=== PATIENT | male | born 1940 | race Caucasian/White ===

== ENCOUNTER 2017-01-08 11:23 | Day surgery (SDC) | payer OTHER, MEDICARE ==
[2016-12-31 13:39] VITALS: BMI 41.0
--- NOTE | 2016-12-31 14:20 | PAT Medication Instructions ---
Service Date Dec 31, 2016. Current Home Medication List Aspirin (Aspirin), 325 MG PO QPM Atorvastatin (Lipitor), 20 MG PO QPM Calcium Carbonate (Tums), 1 DOSE PO DAILY Carvedilol (Coreg), 25 MG PO BID Cinnamon (Cinnamon), 1 TAB PO TID Fenofibrate (Tricor), 160 MG PO QPM Ferrous Sulfate (Iron), 325 MG PO TID Hydralazine Hcl (Apresoline), 100 MG PO TID Levothyroxine Sodium (Levothyroxine Sodium), 1 TAB PO QAM Multivitamin (Multivitamin), 1 TAB PO QPM Niacin Ext Rel (Niaspan Ext Rel), 1,000 MG PO QAM Nifedipine (Adalat Cc Ext Rel), 90 MG PO QPM Spironolactone (Aldactone), 25 MG PO QPM Terazosin Hcl (Hytrin), 10 MG PO BID Torsemide (Demadex), 100 MG PO QAM Medication Instructions For Your Scheduled Surgery - Hold the following medications as of 12/31/16: Cinnamon (Cinnamon), 1 TAB PO TID - Hold the following medications the morning of surgery: Torsemide (Demadex), 100 MG PO QAM Calcium Carbonate (Tums), 1 DOSE PO DAILY Ferrous Sulfate (Iron), 325 MG PO TID Niacin Ext Rel (Niaspan Ext Rel), 1,000 MG PO QAM - Take the following medications the morning of surgery with a sip of water OTHERWISE NOTHING TO EAT OR DRINK AFTER MIDNIGHT: Carvedilol (Coreg), 25 MG PO BID Levothyroxine Sodium (Levothyroxine Sodium), 1 TAB PO QAM Hydralazine Hcl (Apresoline), 100 MG PO TID Terazosin Hcl (Hytrin), 10 MG PO BID - Take the following medications as scheduled the night before surgery: Nifedipine (Adalat Cc Ext Rel), 90 MG PO QPM Spironolactone (Aldactone), 25 MG PO QPM Multivitamin (Multivitamin), 1 TAB PO QPM Atorvastatin (Lipitor), 20 MG PO QPM Carvedilol (Coreg), 25 MG PO BID Aspirin (Aspirin), 325 MG PO QPM (okay to continue per surgeon) Hydralazine Hcl (Apresoline), 100 MG PO TID Ferrous Sulfate (Iron), 325 MG PO TID Terazosin Hcl (Hytrin), 10 MG PO BID - Do not take the following medications the night before surgery: Fenofibrate (Tricor), 160 MG PO QPM If you have any questions please call us at [phone] or [phone] or [phone]
[2016-12-31 15:16] LABS: BASO % 0.5 %; BASO ABS # 0.04 K/uL (0-0.2); COMPLETE YES; EOS % 5.6 %; IG% 0.4 %; LYMPH % 15.6 %; LYMPH ABS # 1.33 K/uL (1.2-3.4); MEAN CELL VOLUME 98.7 fL (80-100); MEAN CORPUSCULAR HEMOGLOBIN 31.8 pg (25-34); MEAN CORPUSCULAR HGB CONC 32.3 g/dl (32-36); MEAN PLATELET VOLUME 9.5 fL (7.4-10.4); MONO % 10.8 %; NEUT % 67.1 %; PLATELET COUNT 213 K/uL (130-400); RED BLOOD COUNT 3.14 M/uL (4.7-6.1); WHITE BLOOD COUNT 8.54 K/uL (4.8-10.8)
[2016-12-31 15:35] LABS: INR 1.1 (0.9-1.1); PROTHROMBIN TIME (PATIENT) 12.1 SECONDS (9.0-12.0)
[2016-12-31 16:13] LABS: BUN/CREATININE RATIO 13.1 (10-20); CALCIUM 8.8 mg/dl (8.5-10.1); CREATININE 3.4 mg/dl (0.60-1.40)
[~2017-01-08] VITALS: Ht 180.3 cm; Wt 127.3 kg
--- NOTE | 2017-01-08 06:05 | History and Physical ---
History & Physical Date of Service Jan 08, 2017. History & Physical CC: End stage renal disease HPI: Mr. Sousa states that he has had worsening kidney disease for a while now and that he was advised by his process improvement analyst to undergo creation of arteriovenous fistula, as he is likely to need dialysis at some point; however, he was not given any time frame for this. There is no definite start date planned. The patient states overall he has been feeling generally pretty well. He has been getting around okay and denies any complaints at this time. He denies headaches, fevers, chills, dizziness, chest pain, shortness of breath, abdominal pain, nausea, vomiting, diarrhea, constipation, dysuria, hematuria, rest pain, claudication, nonhealing wounds, or ulcers other complaints. He did undergo vein mapping prior to today's appointment, which demonstrates a usable cephalic vein in his left upper arm, as well as a usable cephalic vein in his right forearm. The patient is right-handed. ALLERGIES: PENICILLIN. His home medications are reconciled on the chart and include the following: Aldactone, aspirin, atorvastatin, calcium carbonate, carvedilol, Centrum Silver , cinnamon, fenofibrate, ferrous iron, hydralazine, levothyroxine, niacin, terazosin, and torsemide. PAST MEDICAL HISTORY: Positive for chronic anemia, chronic kidney disease stage IV, dyslipidemia, hypertension, bladder neoplasm, and type 2 diabetes mellitus. PAST SURGICAL HISTORY: Positive for basal cell carcinoma excision on his chest and tonsillectomy. FAMILY HISTORY: Positive for diabetes and kidney disease in his mother, heart disease and hypertension in his grandparents. SOCIAL HISTORY: Negative for tobacco, alcohol, or drug use. REVIEW OF SYSTEMS: Negative for fatigue, fevers, sweats, weight loss, abnormal moles or rashes, vision changes or photophobia, ear pain, sinus problems or sore throat, cough, shortness of breath, hemoptysis, wheezing, chest pain, palpitations, or syncope. He does have some edema of his bilateral lower extremities and states this is chronic and unchanged. He denies abdominal pain , nausea, vomiting, diarrhea, constipation, muscle weakness, headaches, dizziness, numbness, or seizures. PHYSICAL EXAMINATION: His vital signs today were as follows: Blood pressure 170/50 in the right arm, 162/54 in the left arm, heart rate is 16, oxygen 97% on room air. The patient is 180.34 cm tall and is 129.1 kilograms. Constitutional: In general, patient is an obese, mildly chronically ill- appearing elderly male in no acute distress. He ambulates without assistance and is active, alert and oriented x4 with normal recent and remote memory. Head is normocephalic and atraumatic. Eyes are EOMI. ENMT exam demonstrates no hearing loss, rhinorrhea, or pharyngeal erythema. Neck is supple, nontender with midline trachea without masses or crepitus. Lung exam demonstrates no dyspnea, a decreased somewhat throughout, but clear bilaterally. Cardiovascular exam demonstrates nondisplaced apical impulse. Regular rate and rhythm with a faint, 2/6 systolic ejection murmur. His carotids do not demonstrate a bruit. His peripheral pulses are full and equal in all extremities unless otherwise noted. Specifically, they are normal in his carotid, brachial, radial, and femoral pulses. Bilateral lower extremity distal pulses are +1. He has brisk capillary refill and no signs of distal ischemia. Abdomen is soft, nontender with normoactive bowel sounds in all 4 quadrants without guarding or rebound. There is no flank or CVA tenderness. I am unable to appreciate a pulsatile mass. Bilateral upper extremities demonstrate no cyanosis, edema, clubbing, varicosities, or ulcers. Bilateral lower extremities do demonstrate +2 to +3 edema. This does appear to be chronic. Neurologic: The patient has grossly intact cranial nerves and grossly intact sensation. IMPRESSION: End-stage renal disease, not yet on hemodialysis. PLAN: The patient is admitted for a left antecubital cephalic vein arteriovenous fistula creation. The procedure, risks, benefits, and alternatives were discussed with the patient. He expressed understanding and agreement to proceed
[~2017-01-08 11:23] MED LIST: ASPI325T45 PO; ATOR-22 PO; ATROPINE SULFATE 0.1 MG/ML 5ML SYR IV PRN; CALC500C3 PO; CARV25TA2 PO; CINN1CAP2 PO; CLINDAMYCIN 600 MG/54 ML D5W IV SCH; EpHEDrine SULFATE INJ 50 MG/ML AMP IV PRN; FENO160T PO; FENTANYL CITRATE INJ 50 MCG/1 ML 2 ML VIAL IV PRN; FERR1TAB23 PO; HYDR100T12 PO; HYDROmorphone INJ 1 MG/ML SYR IV PRN; LABETALOL HCL IV 5 MG/ML 20ML IV PRN; LEVO100T7 PO; MEPERIDINE HCL 25 MG/ML CARP IV PRN; MULT-506 PO; NIFE90TA48 PO; NSP500 PO; ONDANSETRON INJ 2 MG/ML 2 ML VIAL IV PRN; SODIUM CHLORIDE 0.9% 1000ML 1,000 ML IV SCH; SPIR25TA PO; TERA1CAP63 PO; TORS100T13 PO
[2017-01-08 12:09] VITALS: BP 164/72; PULSE 70; TEMP 36.5; O2SAT 97; Ht 180.3 cm; Wt 127.3 kg
[2017-01-08] MEDS ORDERED: LIDOCAINE HCL 2% 2 ML VIAL (20MG/ML) ONE (12:23)
[2017-01-08] MEDS ORDERED: PROPOFOL IV EMULSION 10 MG/ML 20 ML VIAL IV ONE (12:23)
[2017-01-08 12:24] LABS: BUN/CREATININE RATIO 11.1 (10-20); CALCIUM 8.5 mg/dl (8.5-10.1); CREATININE 3.3 mg/dl (0.60-1.40); POTASSIUM 4.2 mmol/L (3.5-5.1)
[2017-01-08] MEDS ORDERED: MIDAZOLAM HCL 1 MG/ML 2ML VIAL ONE (12:24)
[2017-01-08] MEDS ORDERED: FENTANYL CITRATE INJ 50 MCG/1 ML 2 ML VIAL ONE (12:24)
[2017-01-08] MEDS ORDERED: BUPIVACAINE/EPINEPHRINE 0.5% MPF 1:200,000 30 ML VIAL ONE (12:29)
[2017-01-08] MEDS ORDERED: GELATIN SPONGE 12-7MM ONE (12:29)
[2017-01-08] MEDS ORDERED: HEPARIN SOD (PORCINE) 1000 UNIT/ML 10 ML VIAL ONE (12:29)
[2017-01-08] MEDS ORDERED: THROMBIN FOR SOLN 20000 UNIT KIT ONE (12:29)
[2017-01-08] MEDS ORDERED: LIDOCAINE HCL 1% 20 ML VIAL ONE (12:29)
--- NOTE | 2017-01-08 13:23 | History & Physical Bridge Note ---
H&P Re-Evaluation Bridge Note: I have examined the patient, reviewed the History & Physical and in the interval since the performance of the History & Physical I have noted the following changes of clinical significance: No changes noted
[2017-01-08] MEDS ORDERED: ONDANSETRON INJ 2 MG/ML 2 ML VIAL ONE (14:15)
--- NOTE | 2017-01-08 14:19 | [facility] Post Operative Brief Note ---
Immediate Operative Summary Operative Date Jan 08, 2017. Pre-Operative Diagnosis End Stage Renal Disease Post-Operative Diagnosis End Stage Renal Disease Procedure(s) Performed Left Antecubital Cephalic Vein Arteriovenous Fistula Surgeon Dr. Colton Castañeda Senior Ui Developer Surgeon(s) Cherelle Sorenson PA-C Estimated Blood Loss 10ml Findings Good thrill Specimens None per surgeon Anesthesia MAC Complication(s) None Disposition Recovery Room / PACU
[2017-01-08] MEDS ORDERED: OXYC-57 PO (14:21)
--- NOTE | 2017-01-08 14:22 | Discharge Instructions ---
Discharge Instructions Date of Service Jan 08, 2017. Visit Reason for Visit: End Stage Renal Disease Discharge Discharge Diagnosis / Problem: End stage renal disease Discharge Goals Goal(s): Therapeutic intervention Activity Recommendations Activity Limitations: per Instructions/Follow-up section Shower/Bathe: tomorrow Anesthesia . Post Anesthesia Instructions: If you have had General Anesthesia or IV Sedation: * Do not drive today. * Resume driving when surgeon permits. * Do not make important decisions or sign legal documents today. * Call surgeon for: 1. Temperature elevations greater than 101 degrees F. 2. Uncontrollable pain. 3. Excessive bleeding. 4. Persistent nausea and vomiting. 5. Medication intolerance (nausea, vomiting or rash). * For nausea and vomiting use only clear liquids such as: tea, soda, bouillon until nausea subsides, then gradually increase diet as tolerated. * If you have any concerns or questions, call your surgeon's office. If physician is unavailable and it is an emergency, call 911 or go to the nearest emergency room. . Instructions / Follow-Up Instructions / Follow-Up Call [phone] to schedule a follow up appointment if one not already scheduled. ACTIVITY RECOMMENDATIONS: See Above SPECIAL CARE INSTRUCTIONS: Call your doctor if: * Temperature above 101 degrees * Pain not relieved by pain medicine ordered * There is increased drainage or redness from any incision * You have any unanswered questions or concerns. Diet Recommendations Recommended Home Diet: resume previous diet Procedures Procedures Performed: Left Antecubital Cephalic Vein Arteriovenous Fistula Pending Studies Studies pending at discharge: no Medical Emergencies . Who to Call and When: Medical Emergencies: If at any time you feel your situation is an emergency, please call 911 immediately. . Non-Emergent Contact Non-Emergency issues call your: Surgeon . . "Provider Documentation" section prepared by Colton Castañeda. . [place] Drug Monitoring Program Search Results: no issues identified
[2017-01-08 15:00] VITALS: BP 163/59; PULSE 64; TEMP 37; O2SAT 94
--- NOTE | 2017-01-08 15:00 | Anesthesiology Progress Note ---
Anesthesia Post Op Note Date & Time Jan 08, 2017 at 15:00 Vital Signs Pain Intensity: 0 Vital Signs Past 12 Hours Date Time Temp Pulse Resp B/P (MAP) Pulse Ox O2 Delivery O2 Flow Rate FiO2 01/08/17 14:50 36.9 63 13 169/66 95 Room Air 01/08/17 14:41 64 12 153/54 95 Room Air 01/08/17 14:34 36.5 63 17 162/62 100 Oxymask 10 01/08/17 12:09 36.5 70 18 164/72 (102) 97 Room Air Notes Mental Status: alert / awake / arousable, participated in evaluation Pt Amnestic to Procedure: Yes Nausea / Vomiting: adequately controlled Pain: adequately controlled Airway Patency, RR, SpO2: stable & adequate BP & HR: stable & adequate Hydration State: stable & adequate Anesthetic Complications: no major complications apparent
[2017-01-08 15:30] VITALS: BP 155/74; PULSE 70; TEMP 36.6; O2SAT 100
--- NOTE | 2017-01-08 15:41 | OPERATIVE REPORT ---
DATE OF OPERATION: 01/08/2017 PREOPERATIVE DIAGNOSIS: End-stage renal disease. POSTOPERATIVE DIAGNOSIS: Same. PROCEDURE: Left antecubital cephalic vein AV fistula creation. SURGEON: Dr. Castañeda. PESTICIDE APPLICATOR: Cherelle Sorenson PA-C. ANESTHETIC: MAC. PROCEDURE INDICATIONS: The patient is a 76-year-old gentleman in need of dialysis access for dialysis. A left antecubital cephalic vein fistula was recommended. He understood the risks, options and benefits and agreed to have this procedure. OPERATION AND FINDINGS: The patient was taken to the operating room and placed in the supine position. After the left arm was prepped and draped in a sterile manner, local anesthetic was administered. A transverse incision was made just below the antecubital crease in the left arm. This was carried down to where the cephalic vein was identified in junction with the median cubital. This was dissected free. The brachial artery was then identified once the fascia was incised. It was of good size and was fairly soft. The cephalic vein at that level was approximately 3 mm in size. The cephalic vein was then ligated distally and divided. Branches were also ligated and divided. The brachial artery was then clamped proximally and distally. Longitudinal arteriotomy was then made. The cephalic vein was beveled in the usual fashion and end-to-side anastomosis was accomplished using a running 7-0 Prolene suture in the usual vascular fashion. Prior to completing the closure, backbleeding and forward bleeding was allowed to occur and final few sutures were then placed and securely tied. Clamps were then removed. Excellent flow was seen through the fistula. The vein dilated up nicely. There was a good palpable thrill at the end of the procedure. The wound was then inspected. No bleeding was seen in the wound. The wound was then closed in the usual fashion using a running 3-0 Vicryl suture for the subcutaneous layer and running 4-0 subcuticular suture for the skin edges. Dermabond was used for a dressing. The patient left the operating room in good condition and tolerated the procedure well. Cherelle Sorenson Pac assisted due to lack of resident availability and was necessary for prepping, draping, retraction, wound closure defects, subQ and skin closure and was necessary for the case. I attest to the content of the Intraoperative Record and any orders documented therein. Any exceptions are noted below. GUNNARD
== END 2017-01-08 15:39 | disposition home or self-care (01) ==
LOC: C.ACU 11:23
PROVIDERS: ATTEND Surgery Vascular Surgery
DX: I12.0 Hypertensive chronic kidney disease with stage 5 chronic kidney disease or end stage renal disease (principal); N18.6 End stage renal disease; E11.9 Type 2 diabetes mellitus without complications; D63.1 Anemia in chronic kidney disease; E78.5 Hyperlipidemia, unspecified; G47.33 Obstructive sleep apnea (adult) (pediatric); Z79.82 Long term (current) use of aspirin; Z85.828 Personal history of other malignant neoplasm of skin; Z83.3 Family history of diabetes mellitus; Z84.1 Family history of disorders of kidney and ureter; Z82.49 Family history of ischemic heart disease and other diseases of the circulatory system